=== PATIENT | male | born 1940 | race Caucasian/White ===

== ENCOUNTER 2016-08-12 06:02 | Inpatient (IN) | payer MEDICARE ==
[2016-08-12] MEDS ORDERED: DILTIAZEM HCL INJ 25 MG/5 ML VIAL IV ONE (06:14)
[2016-08-12] MEDS ORDERED: NORMAL SALINE 1000 ML 1,000 ML IV ONE ×2 (06:14→07:16)
--- NOTE | 2016-08-12 06:21 | ER Document Report ---
ED General - General Stated Complaint: SYNCOPE Mode of Arrival: Medic Information source: Patient Notes: 76-year-old male with no previous cardiac history presents with complaints of dizziness lightheadedness headache and palpitations. Patient notes she had a abdominal GI issue over the past few days has not been eating well. Denies any fevers or chills. Denies any current vomiting. TRAVEL OUTSIDE OF THE [place] IN LAST 30 DAYS: No - HPI Onset: Just prior to arrival Onset/Duration: Sudden Quality of pain: Sharp Severity: Mild Pain Level: 1 Associated symptoms: Headache, Weakness, Other Exacerbated by: Denies Relieved by: Denies Similar symptoms previously: No Recently seen / treated by doctor: Yes - Related Data Allergies/Adverse Reactions: No Known Allergies Allergy (Unverified 02/22/15 10:33) Past Medical History - Social History Smoking Status: Never Smoker Cigarette use (# per day): No Chew tobacco use (# tins/day): No Smoking Education Provided: No Family History: Reviewed & Not Pertinent Patient has suicidal ideation: No Patient has homicidal ideation: No - Past Medical History Cardiac Medical History: Reports: Hx Hypercholesterolemia Denies: Hx Heart Attack, Hx Hypertension Pulmonary Medical History: Denies: Hx Asthma Neurological Medical History: Denies: Hx Cerebrovascular Accident, Hx Seizures GI Medical History: Denies: Hx Hepatitis, Hx Hiatal Hernia, Hx Ulcer Infectious Medical History: Denies: Hx Hepatitis Past Surgical History: Reports: Hx Cholecystectomy. Denies: Hx Open Heart Surgery, Hx Pacemaker Review of Systems - Review of Systems Notes: REVIEW OF SYSTEMS: CONSTITUTIONAL : Denies fever, chills, or sweats. Denies recent illness. EENT: Denies eye, ear, throat, or mouth pain or symptoms. Denies nasal or sinus congestion or discharge. Denies throat, tongue, or mouth swelling or difficulty swallowing. CARDIOVASCULAR: Admits to palpitations RESPIRATORY: Denies cough, cold, or chest congestion. Denies shortness of breath, difficulty breathing, or wheezing. GASTROINTESTINAL: Denies abdominal pain or distention. Denies nausea, vomiting , or diarrhea. Denies blood in vomitus, stools, or per rectum. Denies black, tarry stools. Denies constipation. GENITOURINARY: Denies difficulty urinating, painful urination, burning, frequency, blood in urine, or discharge. MUSCULOSKELETAL: Denies back or neck pain or stiffness. Denies joint pain or swelling. SKIN: Denies rash, lesions or sores. HEMATOLOGIC : Denies easy bruising or bleeding. LYMPHATIC: Denies swollen, enlarged glands. NEUROLOGICAL: Admits to headache PSYCHIATRIC: Denies anxiety or stress. Denies depression, suicidal ideation, or homicidal ideation. ALL OTHER SYSTEMS REVIEWED AND NEGATIVE. Dictation was performed using [employer] voice recognition software PHYSICAL EXAMINATION: GENERAL: Well-appearing, well-nourished and in no acute distress. HEAD: Atraumatic, normocephalic. EYES: Pupils equal round and reactive to light, extraocular movements intact, conjunctiva are normal. ENT: Nares patent, oropharynx clear without exudates. Moist mucous membranes. NECK: Normal range of motion, supple without lymphadenopathy LUNGS: Breath sounds clear to auscultation bilaterally and equal. No wheezes rales or rhonchi. HEART: Irregular rate and rhythm heart rate anywhere between 110 to 160s ABDOMEN: Soft, nontender, nondistended abdomen. No guarding, no rebound. No masses appreciated. Musculoskeletal: Normal range of motion, no pitting or edema. No cyanosis. NEUROLOGICAL: Cranial nerves grossly intact. Normal speech, normal gait. Normal sensory, motor exams PSYCH: Normal mood, normal affect. SKIN: Warm, Dry, normal turgor, no rashes or lesions noted. Physical Exam - Vital signs Vitals: Pulse Ox 95 08/12/16 06:05 Course - Re-evaluation Re-evalutation: 08/12/16 06:47 Patient is currently in A. fib RVR, EKG was consistent with atrial flutter as well. Patient was given a fluid bolus since he was hypotensive initially on arrival blood pressure improved, Cardizem was started. Patient will be treated for his headache however there was suspicion that he may have already stroked secondary to the RVR - Vital Signs Vital signs: Temp Pulse Resp BP Pulse Ox 17 90/62 L 94 08/12/16 07:01 08/12/16 07:01 08/12/16 07:01 - Laboratory Result Diagrams: 08/12/16 06:11 08/12/16 06:11 Laboratory results interpreted by me: 08/12/16 08/12/16 08/12/16 06:11 06:11 06:11 MCV 98 H MCH 33.6 H Plt Count 117 L Lymphocytes % 11.1 L Glucose 114 H NT-Pro-B Natriuret Pep 489 H - EKG Interpretation by Me EKG shows normal: Sinus rhythm, [place], Intervals Rate: Tachycardia Rhythm: A.Fib, A.Flutter Critical Care Note - Critical Care Note Total time excluding time spent on procedures (mins): 31 Comments: 31 minutes of critical care time spent in direct contact evaluating and reevaluating the patient, treating symptoms, reviewing labs and studies and speaking with family and consultants excluding any procedures Discharge - Discharge Clinical Impression: Atrial fibrillation with rapid ventricular response Hypotension Qualifiers: Hypotension type: unspecified hypotension type Qualified Code(s): I95.9 - Hypotension, unspecified Condition: Stable Disposition: ADMITTED INPATIENT Admitting Provider: Hospitalist Unit Admitted: [facility]
[2016-08-12 06:24] LABS: ABSOLUTE BASOPHILS # (AUTO) 0.1 10^3/uL (0.0-0.2); ABSOLUTE EOSINOPHILS # (AUTO) 0.2 10^3/uL (0.0-0.6); ABSOLUTE LYMPHOCYTES (AUTO) 0.8 10^3/uL (0.5-4.7); ABSOLUTE MONOCYTES (AUTO) 0.8 10^3/uL (0.1-1.4); ABSOLUTE NEUT (AUTO) 5.7 10^3/uL (1.7-8.2); BASOPHILS % (AUTO) 0.8 % (0-2); EOSINOPHILS % (AUTO) 2.2 % (0-6); HEMATOCRIT 46.9 % (37.9-51.0); HGB HCT DIFFERENCE 1.1; LYMPHOCYTES % (AUTO) 11.1 % (13-45); MEAN CORPUSCULAR HEMOGLOBIN 33.6 pg (27.0-33.4); MEAN CORPUSCULAR HGB CONC 34.2 g/dL (32.0-36.0); MEAN CORPUSCULAR VOLUME 98 fl (80-97); MONOCYTES % (AUTO) 10.4 % (3-13); RED BLOOD COUNT 4.78 10^6/uL (4.35-5.55); SEGMENTED NEUTROPHILS % (AUTO) 75.5 % (42-78); WHITE BLOOD COUNT 7.6 10^3/uL (4.0-10.5)
[2016-08-12 06:43] LABS: ALANINE AMINOTRANSFERASE 44 U/L (21-72); ALBUMIN 3.8 g/dL (3.5-5.0); ALKALINE PHOSPHATASE 52 U/L (38-126); ANION GAP 13 (5-19); ASPARTATE AMINO TRANSFERASE 26 U/L (17-59); BILIRUBIN,TOTAL 0.7 mg/dL (0.2-1.3); BLOOD UREA NITROGEN 14 mg/dL (7-20); CALCIUM 8.9 mg/dL (8.4-10.2); CARBON DIOXIDE 22 mmol/L (22-30); CHLORIDE 106 mmol/L (98-107); CREATINE KINASE 153 U/L (55-170); GLUCOSE 114 mg/dL (75-110); MAGNESIUM 1.6 mg/dL (1.6-2.3); SODIUM 140.9 mmol/L (137-145); TOTAL PROTEIN 6.3 g/dL (6.3-8.2)
[2016-08-12] MEDS ORDERED: ACETAMINOPHEN 325 MG TABLET PO ONE (06:44)
[2016-08-12 06:53] LABS: CREATINE KINASE MB 1.31 ng/mL (<4.55)
[2016-08-12 06:54] LABS: TROPONIN I < 0.012 ng/mL
[2016-08-12] MEDS: DILTIAZEM HCL/D5W 125 ML IV PRN ×2 (07:49→08:42)
[2016-08-12] MEDS ORDERED: ONDANSETRON HCL INJ/PF 4 MG/2 ML SDV IV PRN (09:25)
[2016-08-12] MEDS ORDERED: ACETAMINOPHEN 325 MG TABLET PO PRN (09:25)
[2016-08-12] MEDS ORDERED: DILTIAZEM HCL/D5W 125 ML IV PRN (09:33)
--- NOTE | 2016-08-12 09:43 | PDOC H&P ---
History of Present Illness Admission Date/PCP: 08/12/16 08:05 Patient complains of: Near syncope History of Present Illness: MARTA STINSON JR is a 76 year old male, with hypercholesterolemia has been dealing with some palpitation, intermittent sharp chest pain and lightheadedness for a few months. It has no relation to activity. The patient however will not have palpitation noticeable unless he is doing more physical activity. Last night the patient started to develop lightheadedness and almost passed out. There is some sweating with some nausea but no vomiting. The patient was able to go to his bed thinking that it will go away however he persisted he called his son and he was brought to the hospital where he was found to be in rapid atrial fibrillation and flutter. 2 L of normal saline bolus was given. Cardizem drip was started. The patient was referred for admission. Patient had episodes of diarrhea early this week for about 3 days to spontaneously resolve. Patient was taking just liquid diet at that time. No paroxysmal nocturnal dyspnea, no orthopnea. Has occasional dyspnea on exertion however. Past Medical History Past Medical History: Medication reconciliation pending verification from the patient's pharmacist. Cardiac Medical History: Reports: Hyperlipidema Denies: Myocardial Infarction, Hypertension Pulmonary Medical History: Denies: Asthma Neurological Medical History: Denies: Seizures GI Medical History: Denies: Hepatitis, Hiatal Hernia Hematology: Denies: Anemia, Sickle Cell Disease Past Surgical History Past Surgical History: Reports: Cholecystectomy, Orthopedic Surgery - Rotator cuff repair on the right Denies: Pacemaker Social History Information Source: Patient Smoking Status: Never Smoker Frequency of Alcohol Use: Occasional Hx Recreational Drug Use: No Drugs: None Family History Family History: COPD, Malignancy Parental Family History Reviewed: Yes Children Family History Reviewed: Yes Sibling(s) Family History Reviewed.: Yes Medication/Allergy Allergies/Adverse Reactions: No Known Allergies Allergy (Unverified 02/22/15 10:33) Review of Systems Constitutional: PRESENT: weakness - Generalized. ABSENT: chills, fever(s), headache(s), weight gain, weight loss Eyes: ABSENT: visual disturbances Ears: ABSENT: hearing changes Nose, Mouth, and Throat: ABSENT: mouth pain, sore throat Cardiovascular: PRESENT: chest pain, dyspnea on exertion, palpitations. ABSENT : edema, orthropnea Respiratory: PRESENT: dyspnea. ABSENT: cough, hemoptysis, sputum Gastrointestinal: PRESENT: bloating, diarrhea - But now resoled. ABSENT: abdominal pain, constipation, hematemesis, hematochezia, nausea, vomiting Genitourinary: ABSENT: dysuria, hematuria Musculoskeletal: ABSENT: joint swelling Integumentary: ABSENT: pruritus, rash, wounds Neurological: PRESENT: dizziness, syncope - Near syncopal sensation. ABSENT: abnormal gait, abnormal speech, confusion, focal weakness Psychiatric: ABSENT: anxiety, depression, homidical ideation, suicidal ideation Endocrine: ABSENT: cold intolerance, heat intolerance, polydipsia, polyuria Hematologic/Lymphatic: ABSENT: easy bleeding, easy bruising Physical Exam Vital Signs: Temp Pulse Resp BP Pulse Ox 18 96/70 L 97 08/12/16 09:01 08/12/16 09:01 08/12/16 09:01 General appearance: PRESENT: no acute distress, morbidly obese Head exam: PRESENT: atraumatic, normocephalic Eye exam: PRESENT: conjunctiva pink, EOMI, PERRLA. ABSENT: scleral icterus Ear exam: PRESENT: normal external ear exam Mouth exam: PRESENT: moist, neck supple, tongue midline Neck exam: ABSENT: carotid bruit, JVD, lymphadenopathy, thyromegaly Respiratory exam: PRESENT: clear to auscultation yasmin. ABSENT: rales, rhonchi, wheezes Cardiovascular exam: PRESENT: irregular rhythm, +S1, +S2. ABSENT: diastolic murmur, gallop, rubs, systolic murmur Pulses: PRESENT: normal dorsalis pedis pul Vascular exam: PRESENT: normal capillary refill GI/Abdominal exam: PRESENT: normal bowel sounds, soft. ABSENT: distended, guarding, mass, organolmegaly, rebound, tenderness Rectal exam: PRESENT: deferred Extremities exam: PRESENT: full ROM. ABSENT: calf tenderness, clubbing, pedal edema Neurological exam: PRESENT: alert, awake, oriented to person, oriented to place , oriented to time, oriented to situation Psychiatric exam: PRESENT: appropriate affect, normal mood. ABSENT: homicidal ideation, suicidal ideation Skin exam: PRESENT: dry, intact, warm. ABSENT: cyanosis, rash Results Impressions: Chest X-Ray 08/12/16 06:05 IMPRESSION: NO ACUTE RADIOGRAPHIC FINDING IN THE CHEST. Assessment & Plan - Diagnosis (1) Atrial fibrillation with RVR Is this a current diagnosis for this admission?: Yes (2) Hypotension Qualifiers: Hypotension type: unspecified hypotension type Qualified Code(s): I95.9 - Hypotension, unspecified Is this a current diagnosis for this admission?: Yes (3) Near syncope Is this a current diagnosis for this admission?: Yes (4) Hyperlipidemia Qualifiers: Hyperlipidemia type: unspecified Qualified Code(s): E78.5 - Hyperlipidemia, unspecified Is this a current diagnosis for this admission?: Yes - Time Time Spent: 50 to 70 Minutes - Inpatient Certification Based on my medical assessment, after consideration of the patient's comorbidities, presenting symptoms, or acuity I expect that the services needed warrant INPATIENT care.: Yes I certify that my determination is in accordance with my understanding of Medicare's requirements for reasonable and necessary INPATIENT services [42 CFR 412.3e].: Yes Medical Necessity: Significant Comorbidiites Make Outpatient Treatment Too Risky , Need Close Monitoring Due to Risk of Patient Decompensation, Need For IV Fluids, Need For Continuous Telemetry Monitoring, Risk of Complication if Not Cared For in Hospital, Risk of Diagnosis Which Will Require Inpatient Eval/Care/ Monitoring Post Hospital Care: D/C Correctional Counselor Documentation - Plan Summary Plan Summary: Admit the patient to [facility]. Continue Cardizem drip and begin oral Cardizem. I will put the patient on aspirin. We will obtain cardiac enzymes 3. Echocardiogram will also be done. Supplemental oxygen and DVT prophylaxis with Lovenox will be placed. We will consult cardiology service for further evaluation. We will obtain fasting lipid panel. We will obtain a free T4. Further testing depends on the initial evaluation and per specialty recommendation as outlined above.
[2016-08-12] MEDS ORDERED: ENOXAPARIN SODIUM INJ 40 MG/0.4 ML DISP.SYRIN SUBCUT ONE (10:00)
[2016-08-12] MEDS: NORMAL SALINE 1000 ML 1,000 ML IV PRN ×3 (10:21→23:38)
[2016-08-12] MEDS: ASPIRIN 325 MG TABLET PO SCH (10:21)
[2016-08-12 10:53] LABS: CREATINE KINASE MB 1.36 ng/mL (<4.55)
[2016-08-12 10:55] LABS: TROPONIN I < 0.012 ng/mL
[2016-08-12 16:36] LABS: CREATINE KINASE MB 1.23 ng/mL (<4.55)
[2016-08-12 16:45] LABS: TROPONIN I < 0.012 ng/mL
[2016-08-12] MEDS ORDERED: ZOLPIDEM TARTRATE 5 MG TABLET PO PRN (18:00)
[2016-08-12] MEDS ORDERED: INFLUENZA ADLT QUAD (36MOS+) 2016-17 VAC 0.5 ML SYR IM PRN (18:01)
[2016-08-12] MEDS: DILTIAZEM HCL 30 MG TABLET PO SCH ×2 (18:04→23:59)
--- NOTE | 2016-08-12 18:06 | EKG REPORT ---
SEVERITY:- ABNORMAL ECG - ATRIAL FLUTTER/FIBRILLATION, A-RATE 333 BORDERLINE PROLONGED QT INTERVAL : Confirmed by: Payal Gtz MD 12-Aug-2016 18:05:41
--- NOTE | 2016-08-12 18:39 | XCELERA REPORT ---
[address] [address] Transthoracic Echocardiogram Report Name: MARTA STINSON JR Age: 76 yrs Gender: Male : 1940 Patient Status: Inpatient Patient Location: \S\18\S\A Study Date: 08/12/2016 11:29 AM Height: 71 in Weight: 270 lb BSA: 2.4 m2 Procedure: A complete two-dimensional transthoracic echocardiogram was performed (2D, M-mode, spectral and color flow Doppler). The study was technically adequate with some images being suboptimal in quality. Reason For Study: new afib, chest pain Ordering Physician: DIEGO AMOS Performed By: Manuel Lloyd Interpretation Summary The left ventricular ejection fraction is normal. Wall motion cannot be accurately commented on, but no definite regional wall motion abnormalities noted. There is mild concentric left ventricular hypertrophy. The left ventricle is grossly normal size. The right ventricle is mildly dilated. The right ventricular systolic function is normal. The left atrium is mildly dilated. The right atrium is mildly dilated. There is a trace to mild amount of mitral regurgitation There is no mitral valve stenosis. There is a trace to mild amount of aortic regurgitation There is no aortic valve stenosis There is a trace or physiologic amount of tricuspid regurgitation Tricuspid regurgitation jet envelope not well defined to measure RV systolic pressure accurately. The aortic root is not well visualized but is probably normal size. The inferior vena cava was not well visualized There is no pericardial effusion. MMode/2D Measurements \T\ Calculations RVDd: 3.4 cm LVIDd: 5.0 cm FS: 32.8 % Ao root diam: 4.1 cm IVSd: 1.3 cm LVIDs: 3.4 cm EDV(Teich): 118.4 ml LVPWd: 1.1 cm ESV(Teich): 46.2 ml Ao root area: 13.3 cm2 EF(Teich): 61.0 % LA dimension: 3.9 cm Doppler Measurements \T\ Calculations MV E max darius: MV P1/2t max darius: Ao V2 max: LV V1 max P.7 cm/sec 97.7 cm/sec 125.7 cm/sec 4.5 mmHg MV P1/2t: 42.7 msec Ao max PG: LV V1 max: 6.3 mmHg 105.8 cm/sec MVA(P1/2t): 5.2 cm2 MV dec slope: 670.1 cm/sec2 MV dec time: 0.17 sec PA V2 max: TR max darius: RAP systole: 73.5 cm/sec 214.5 cm/sec 10.0 mmHg PA max PG: TR max P.4 mmHg 2.2 mmHg RVSP(TR): 28.4 mmHg Left Ventricle The left ventricle is grossly normal size. There is mild concentric left ventricular hypertrophy. The left ventricular ejection fraction is normal. LV diastolic function could not be adequately assessed due to atrial fibrilation. Wall motion cannot be accurately commented on, but no definite regional wall motion abnormalities noted. Right Ventricle The right ventricle is mildly dilated. There is normal right ventricular wall thickness. The right ventricular systolic function is normal. Atria The right atrium is mildly dilated. The left atrium is mildly dilated. Interarterial septum not well visualized and not well dopplered. Cannot comment on ASD/PFO presence. Mitral Valve There is mild mitral leaflet calcification. There is no mitral valve stenosis. There is a trace to mild amount of mitral regurgitation. Aortic Valve The aortic valve is mildly calcified. There is no aortic valve stenosis. There is a trace to mild amount of aortic regurgitation. Tricuspid Valve The tricuspid valve is not well visualized secondary to technical limitations. There is no tricuspid stenosis. There is a trace or physiologic amount of tricuspid regurgitation. Tricuspid regurgitation jet envelope not well defined to measure RV systolic pressure accurately. Pulmonic Valve The pulmonic valve is not well visualized. Great Vessels The aortic root is not well visualized but is probably normal size. The inferior vena cava was not well visualized. Effusions There is no pericardial effusion. : DIEGO AMOS Shyamal
--- NOTE | 2016-08-12 18:40 | PDOC CONSULTATION ---
Consultation Consult Date: 08/12/16 Attending physician:: DIEGO AMOS Consult reason:: A fib History of Present Illness Admission Date/PCP: 08/12/16 09:25 Patient complains of: Shortness of breath and near syncope History of Present Illness: MARTA STINSON JR is a 76 year old male, with hypercholesterolemia has been dealing with some palpitation, intermittent sharp chest pain and lightheadedness for a few months. It has no relation to activity. The patient however will not have palpitation noticeable unless he is doing more physical activity. Last night the patient started to develop lightheadedness and almost passed out. There is some sweating with some nausea but no vomiting. The patient was able to go to his bed thinking that it will go away however his symptoms persisted, he called his son and he was brought to the hospital where he was found to be in rapid atrial fibrillation and flutter. 2 L of normal saline bolus was given. Cardizem drip was started. The patient was referred for admission. Patient had episodes of diarrhea early this week for about 3 days to spontaneously resolve. Patient was taking just liquid diet at that time. No paroxysmal nocturnal dyspnea, no orthopnea. Has occasional dyspnea on exertion however. On questioning patient denied any chest pain. He denied any prior history of myocardial infarction, angina, congestive heart failure, stroke or mini strokes or peripheral vascular disease. Patient's son in the room. History was supplemented and confirmed. Of note, while patient was in the emergency room and in atrial fibrillation, he did not feel that his heart was beating irregular. On questioning patient does describe history of snoring, difficulty falling asleep and staying asleep, fatigue and tiredness during the day. Patient describes a previous sleep study many years ago. Past Medical History Cardiac Medical History: Reports: Hyperlipidema Denies: Myocardial Infarction, Hypertension Pulmonary Medical History: Denies: Asthma Neurological Medical History: Denies: Seizures GI Medical History: Denies: Hepatitis, Hiatal Hernia Psychiatric Medical History: Denies: Depression Hematology: Denies: Anemia, Sickle Cell Disease Past Surgical History Past Surgical History: Reports: Cholecystectomy, Orthopedic Surgery - Rotator cuff repair on the right Denies: Pacemaker Social History Information Source: Patient Smoking Status: Never Smoker Frequency of Alcohol Use: Occasional Hx Recreational Drug Use: No Drugs: None Hx Prescription Drug Abuse: No - Advance Directive Resuscitation Status: Full Code Surrogate healthcare decision maker:: Patient's son is the surrogate decision maker. Family History Family History: COPD, Malignancy Parental Family History Reviewed: Yes Children Family History Reviewed: Yes Sibling(s) Family History Reviewed.: Yes - Negative for premature coronary artery disease or sudden cardiac in the family amongst first degree relatives. Medication/Allergy Home Medications: Doxycycline Hyclate [Vibramycin 100 mg Tablet] 100 mg PO BIDP PRN 08/12/16 Ivermectin [Soolantra] 1 applic TOP DAILY 08/12/16 Ketoconazole [Nizoral] 1 applic TOP DAILY 08/12/16 Olopatadine HCl [Pataday] 1 drop OU DAILY 08/12/16 Simvastatin [Zocor 10 mg Tablet] 10 mg PO DAILY 08/12/16 Allergies/Adverse Reactions: No Known Allergies Allergy (Unverified 02/22/15 10:33) Review of Systems Review of Systems: Please see history of present illness and past medical history as wall. Constitutional: No fever or chills reported. Head : No recent chronic headaches, recent head injury. Eyes: No recent eye pain, diplopia, redness, discharge, acute visual changes. Ears: No recent chronic ear pain, acute hearing loss, ear discharge. Oral cavity: No recent ulcerations, bleeding, oral cavity discomfort. Neck: No recent acute neck pain reported. Hematologic: No recent easy bruising or bleeding or hematologic malignancy reported. Lymphatic: No recent lymphatic malignancy, chronic lymphadenopathy reported yet Cardiovascular system review: See history of present illness. Near syncope and palpitations being noted. Respiratory system review: No recent chronic cough, hemoptysis, blood clots in the lungs reported. Mild Shortness of breath on exertion Gastrointestinal system review: Negative for any recent acute or chronic abdominal pain, hematemesis, melena, patient has however noted some nausea vomiting and diarrhea recently and has had very poor appetite. Genitourinary system review: No recent acute or chronic hematuria, flank pain, UTI etc. reported. Skin system review: Negative for any recent abnormal bruising, no rash, no pruritus reported. Neurologic: No prior history of strokes, mini strokes, seizure disorder. Psychologic: No history of major psychosis or depression reported. Musculoskeletal: Minor aches and pains reported. No acute joint swelling reported. Endocrine: No recent polyuria, polydipsia, recent heat or cold intolerance. Physical Exam Vital Signs: Temp Pulse Resp BP Pulse Ox 98.2 F 64 19 100/60 100 08/12/16 17:01 08/12/16 18:04 08/12/16 17:01 08/12/16 18:04 08/12/16 17:01 Intake & Output 08/11/16 08/12/16 08/13/16 06:59 06:59 06:59 Intake Total 1542 Balance 1542 Weight 119.9 kg Exam: GENERAL: well-nourished and in no acute distress. Alert and oriented x3 HEAD: Atraumatic, normocephalic. EYES: Pupils equal round and reactive to light, extraocular movements intact, sclera anicteric, conjunctiva are normal. ENT: TMs normal, nares patent, oropharynx clear without exudates. Moist mucous membranes. No oral ulcerations or bleeding gums noted NECK: supple without lymphadenopathy. Trachea is central. No cervical or axillary lymphadenopathy noted. Carotids are 2+, JVD WNL LUNGS: Respiration seems nonlabored, no significant accessory muscle action noted. Breath sounds clear to auscultation bilaterally and equal noted. No wheezes rales or rhonchi noted. No significant dullness noted on percussion. CHEST: Palpation of the chest wall shows no significant chest wall tenderness. No other significant abnormalities noted. 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 ABDOMEN: Soft, no significant tenderness appreciated, normoactive bowel sounds. No guarding, no rebound. No rigidity noted . No masses appreciated. EXTREMITIES: Pedal pulses are 1-2+, no calf tenderness noted. No clubbing or cyanosis.trace to 1+ pedal edema noted NEUROLOGICAL: Focused neurological exam showed no significant neurologic deficit. Normal speech, no focal weakness appreciated. PSYCH: Normal mood, normal affect. Judgment and insight within normal limits. SKIN: No significant ecchymosis, rash, ulcerations or signs of pruritus noted. Bilateral lower extremity varicose veins noted. MUSCULOSKELETAL EXAM: No significant joint swelling noted. Results Laboratory Results: 08/12/16 10:07 Free T4 1.21 08/12/16 08/12/16 08/12/16 10:07 10:07 15:55 Creatine Kinase 145 144 CK-MB (CK-2) 1.36 Troponin I < 0.012 08/12/16 15:55 Creatine Kinase CK-MB (CK-2) 1.23 Troponin I < 0.012 Impressions: Chest X-Ray 08/12/16 06:05 IMPRESSION: NO ACUTE RADIOGRAPHIC FINDING IN THE CHEST. Assessment & Plan - Diagnosis (1) Atrial fibrillation with RVR Is this a current diagnosis for this admission?: Yes (2) Hyperlipidemia Qualifiers: Hyperlipidemia type: unspecified Qualified Code(s): E78.5 - Hyperlipidemia, unspecified Is this a current diagnosis for this admission?: Yes (3) Hypotension Qualifiers: Hypotension type: unspecified hypotension type Qualified Code(s): I95.9 - Hypotension, unspecified Is this a current diagnosis for this admission?: Yes (4) Near syncope Is this a current diagnosis for this admission?: Yes (5) Sleep disorder breathing Is this a current diagnosis for this admission?: Yes (6) Obesity Is this a current diagnosis for this admission?: Yes - Notes Notes: Atrial fibrillation with rapid ventricular response: Recommend rate control and chronic anticoagulation. Rationale for this therapy was discussed. Patient may be having paroxysmal atrial fibrillation or may have chronic atrial fibrillation. After 3-4 weeks of adequate anticoagulation, cardioversion, either chemical or electrical can be performed. A 2-D echo was ordered and will be reviewed. Hypotension: Patient was noted to be transiently hypotensive, patient was relative hypovolemic with some contribution from atrial fibrillation. Agree with IV fluid supplementation. Hyperlipidemia: Continue statin therapy. Near syncope: Combination of hypotension and atrial fibrillation. Patient may have underlying sick sinus syndrome. Agree with cardiac monitoring. Patient may benefit from event monitoring as an outpatient. Sleep disordered breathing: Discussed that both obesity and sleep apnea is associated with atrial fibrillation. Discussed that he would benefit from scheduling a sleep study and this could be done from my office. Obesity: Patient advised in weight loss. - Time Time Spent: 30 to 50 Minutes - CODE STATUS was discussed, patient remains full code. Surrogate decision-maker unchanged. Multiple medical problems were addressed.More than 50% of the time spent coordinating care, discussing management plans with involved caregivers. Management plans discussed with involved personnels. Medical decision making was of moderate complexity.
[2016-08-12 19:39] LABS: APPEARANCE,URINE CLEAR; BILIRUBIN,URINE NEGATIVE (NEGATIVE); GLUCOSE, URINE NEGATIVE (NEGATIVE); KETONES,URINE 20 mg/dL (NEGATIVE); LEUKOCYTE ESTERASE,URINE NEGATIVE (NEGATIVE); NITRITE,URINE NEGATIVE (NEGATIVE); PROTEIN,URINE NEGATIVE (NEGATIVE); URINE SPECIFIC GRAVITY 1.015; UROBILINOGEN,URINE NEGATIVE mg/dL (<2.0)
[2016-08-12 21:41] LABS: CREATINE KINASE MB 1.05 ng/mL (<4.55)
[2016-08-12 21:45] LABS: TROPONIN I < 0.012 ng/mL
[2016-08-13 05:55] LABS: ANION GAP 11 (5-19); BLOOD UREA NITROGEN 10 mg/dL (7-20); CALCIUM 8.5 mg/dL (8.4-10.2); CARBON DIOXIDE 22 mmol/L (22-30); CHLORIDE 108 mmol/L (98-107); CREATININE RESULT 0.74 mg/dL (0.52-1.25); GLUCOSE 100 mg/dL (75-110); MAGNESIUM 1.6 mg/dL (1.6-2.3); SODIUM 141.3 mmol/L (137-145)
[2016-08-13] MEDS: DILTIAZEM HCL 30 MG TABLET PO SCH ×2 (05:59→12:22)
[2016-08-13] MEDS ORDERED: LANSOPRAZOLE 30 MG TAB.RAP.DR PO SCH (06:00)
[2016-08-13] MEDS ORDERED: ENOXAPARIN SODIUM INJ 40 MG/0.4 ML DISP.SYRIN SUBCUT SCH (08:00)
[2016-08-13] MEDS: NORMAL SALINE 1000 ML 1,000 ML IV PRN (08:24)
[2016-08-13] MEDS: ASPIRIN 325 MG TABLET PO SCH (10:34)
[2016-08-13 12:32] VITALS: BP 91/63
--- NOTE | 2016-08-13 12:37 | PDOC PROGRESS REPORT ---
Subjective Progress Note for:: 08/13/16 Subjective:: Patient seems to be doing better with gradual improvement. Pt is denying any chest arm or neck discomfort. Patient denying any PND, orthopnea. Patient denied any sustained palpitations, dizziness, syncope, near syncope. Patient denying any fever chills. Patient denying any other significant discomfort. Patient is maintaining sinus rhythm. Patient converted to sinus rhythm. Patient no longer complaining of dizziness. Review of systems: Rest review of systems negative. Medications: Medications have been reviewed. Physical Exam Vital Signs: Temp Pulse Resp BP Pulse Ox 97.7 F 62 18 128/67 H 100 08/13/16 11:27 08/13/16 11:27 08/13/16 11:27 08/13/16 11:27 08/13/16 11:27 Intake & Output 08/12/16 08/13/16 08/14/16 06:59 06:59 06:59 Intake Total 3342 Balance 3342 Weight 121.4 kg Exam: GENERAL: well-nourished and in no acute distress. Alert and oriented x3 HEAD: Atraumatic, normocephalic. EYES: Pupils equal round and reactive to light, extraocular movements intact, sclera anicteric, conjunctiva are normal. ENT: TMs normal, nares patent, oropharynx clear without exudates. Moist mucous membranes. No oral ulcerations or bleeding gums noted NECK: supple without lymphadenopathy. Trachea is central. No cervical or axillary lymphadenopathy noted. Carotids are 2+, JVD WNL LUNGS: Respiration seems nonlabored, no significant accessory muscle action noted. Breath sounds clear to auscultation bilaterally and equal noted. No wheezes rales or rhonchi noted. No significant dullness noted on percussion. CHEST: Palpation of the chest wall shows no significant chest wall tenderness. No other significant abnormalities noted. 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 ABDOMEN: Soft, no significant tenderness appreciated, normoactive bowel sounds. No guarding, no rebound. No rigidity noted . No masses appreciated. EXTREMITIES: Pedal pulses are 1-2+, no calf tenderness noted. No clubbing or cyanosis.1+ pedal edema noted. Mild varicose veins noted. NEUROLOGICAL: Focused neurological exam showed no significant neurologic deficit. Normal speech, no focal weakness appreciated. PSYCH: Normal mood, normal affect. Judgment and insight within normal limits. SKIN: No significant ecchymosis, rash, ulcerations or signs of pruritus noted. MUSCULOSKELETAL EXAM: No significant joint swelling noted. Results Laboratory Results: 08/13/16 05:28 08/12/16 08/13/16 19:16 05:28 Sodium 141.3 Potassium 4.0 Chloride 108 H Carbon Dioxide 22 Anion Gap 11 BUN 10 Creatinine 0.74 Est GFR ( Amer) > 60 Est GFR (Non-Af Amer) > 60 Glucose 100 Calcium 8.5 Phosphorus 3.0 Magnesium 1.6 Urine Color YELLOW Urine Appearance CLEAR Urine pH 5.0 Ur Specific [place] 1.015 Urine Protein NEGATIVE Urine Glucose (UA) NEGATIVE Urine Ketones 20 H Urine Blood NEGATIVE Urine Nitrite NEGATIVE Ur Leukocyte Esterase NEGATIVE Urine WBC (Auto) 0 Urine RBC (Auto) 0 08/12/16 08/12/16 08/12/16 10:07 10:07 15:55 Creatine Kinase 145 144 CK-MB (CK-2) 1.36 Troponin I < 0.012 08/12/16 08/12/16 08/12/16 15:55 21:05 21:05 Creatine Kinase 135 CK-MB (CK-2) 1.23 1.05 Troponin I < 0.012 < 0.012 Impressions: Chest X-Ray 08/12/16 06:05 IMPRESSION: NO ACUTE RADIOGRAPHIC FINDING IN THE CHEST. Lung Scan-VQ NM 08/12/16 23:06 IMPRESSION: NORMAL VENTILATION-PERFUSION LUNG SCAN. NEGATIVE FOR PULMONARY EMBOLI. Assessment & Plan - Diagnosis (1) Atrial fibrillation with RVR Is this a current diagnosis for this admission?: Yes (2) Hyperlipidemia Qualifiers: Hyperlipidemia type: unspecified Qualified Code(s): E78.5 - Hyperlipidemia, unspecified Is this a current diagnosis for this admission?: Yes (3) Hypotension Qualifiers: Hypotension type: unspecified hypotension type Qualified Code(s): I95.9 - Hypotension, unspecified Is this a current diagnosis for this admission?: Yes (4) Near syncope Is this a current diagnosis for this admission?: Yes (5) Sleep disorder breathing Is this a current diagnosis for this admission?: Yes (6) Obesity Is this a current diagnosis for this admission?: Yes - Notes Notes: Atrial fibrillation paroxysmal: Patient now converted to sinus rhythm. Discussed anticoagulation. Rationale for this therapy was discussed. 2-D echo results reviewed. It showed right ventricular enlargement. Normal LVEF. Patient questions answered. Hypotension: This has resolved. Patient may have underlying hypertension. Hyperlipidemia: Continue statin therapy. Near syncope: Combination of hypotension and atrial fibrillation. Patient may have underlying sick sinus syndrome. Patient may benefit from event monitoring as an outpatient. Patient agreeable to get this performed through my office. Sleep disordered breathing: Discussed that both obesity and sleep apnea is associated with atrial fibrillation. Discussed that he would benefit from scheduling a sleep study and this could be done from my office. Obesity: Patient advised in weight loss. - Time Time with patient: Greater than 35 minutes - CODE STATUS was discussed, patient remains full code. Surrogate decision-maker unchanged. Multiple medical problems were addressed.More than 50% of the time spent coordinating care, discussing management plans with involved caregivers. Management plans discussed with involved personnels. Medical decision making was of moderate complexity.
--- NOTE | 2016-08-13 13:17 | PDOC DISCHARGE SUMMARY ---
General - Admit/Disc Date/PCP Admission Date/Primary Care Provider: 08/12/16 09:25 Discharge Date: 08/13/16 - Discharge Diagnosis (1) Atrial fibrillation with RVR Is this a current diagnosis for this admission?: Yes (2) Hypotension Is this a current diagnosis for this admission?: Yes (3) Near syncope Is this a current diagnosis for this admission?: Yes (4) Hyperlipidemia Is this a current diagnosis for this admission?: Yes - Additional Information Resuscitation Status: Full Code Discharge Diet: Cardiac - low-fat low-salt Discharge Activity: Activity As Tolerated, Balance Activity w/Rest Home Medications: Ivermectin [Soolantra] 1 applic TOP DAILY 08/12/16 Ketoconazole [Nizoral] 1 applic TOP DAILY 08/12/16 Olopatadine HCl [Pataday] 1 drop OU DAILY 08/12/16 Simvastatin [Zocor 10 mg Tablet] 10 mg PO DAILY 08/12/16 Apixaban [Eliquis 5 mg Tablet] 5 mg PO BID #60 tablet 08/13/16 Diltiazem HCl [Cardizem Cd 120 mg Capsule] 1 cap.sr PO DAILY #30 cap.sr Additional Information: 1. Watch for any signs of bleeding, including melena, hematochezia, hematemesis , hematuria, hemoptysis. 2. Event recorder/sleep study as outpatient with Dr. Ventura. History of Present Illness Patient complains of: Palpitation and chest pain History of Present Illness: MARTA STINSON JR is a 76 year old male, with hypercholesterolemia has been dealing with some palpitation, intermittent sharp chest pain and lightheadedness for a few months. It has no relation to activity. The patient however will not have palpitation noticeable unless he is doing more physical activity. Last night the patient started to develop lightheadedness and almost passed out. There is some sweating with some nausea but no vomiting. The patient was able to go to his bed thinking that it will go away however he persisted he called his son and he was brought to the hospital where he was found to be in rapid atrial fibrillation and flutter. 2 L of normal saline bolus was given. Cardizem drip was started. The patient was referred for admission. Patient had episodes of diarrhea early this week for about 3 days to spontaneously resolve. Patient was taking just liquid diet at that time. No paroxysmal nocturnal dyspnea, no orthopnea. Has occasional dyspnea on exertion however. Hospital Course Hospital Course: The patient was admitted to [facility]. The patient was maintained on Cardizem drip and oral Cardizem was begun. Aspirin was likewise started. Patient's hypotension was treated with intravenous fluids. Eventually the patient's blood pressure normalized. Cardiology was consulted for the new onset atrial fibrillation. Recommendation of putting the patient on chronic anticoagulation. Patient converted back to sinus later on today. Patient's Cardizem drip was discontinued. IV fluids was maintained and the patient's blood pressure has stabilized. The patient's symptomatology improved. Cardiac enzymes were negative for myocardial infarction. D-dimer mildly elevated and so a VQ scan was done showing low probability for pulmonary embolism. 2-D echocardiogram revealed normal ejection fraction, and no significant valvular defect. The rest of the hospital stay is unremarkable. The patient was cleared by cardiology to this discharge and have an event recorder or a sleep study in his office. Patient agreed for chronic anticoagulation. Risks and benefits has been explained. Symptoms of bleeding likewise described to the patient. Physical Exam Vital Signs: Temp Pulse Resp BP Pulse Ox 97.7 F 62 18 91/63 L 100 08/13/16 12:32 08/13/16 12:32 08/13/16 12:32 08/13/16 12:32 08/13/16 12:32 Intake & Output 08/12/16 08/13/16 08/14/16 06:59 06:59 06:59 Intake Total 3342 Balance 3342 Weight 121.4 kg General appearance: PRESENT: no acute distress, cooperative Head exam: PRESENT: normocephalic Eye exam: PRESENT: EOMI Mouth exam: PRESENT: moist, neck supple Neck exam: ABSENT: JVD Respiratory exam: PRESENT: clear to auscultation yasmin. ABSENT: rhonchi, wheezes Cardiovascular exam: PRESENT: RRR. ABSENT: gallop GI/Abdominal exam: PRESENT: normal bowel sounds, soft. ABSENT: distended, tenderness Extremities exam: ABSENT: pedal edema Neurological exam: PRESENT: alert, awake, oriented to person, oriented to place , oriented to time, oriented to situation Skin exam: PRESENT: dry, warm. ABSENT: cyanosis Results Laboratory Results: 08/13/16 05:28 08/12/16 08/13/16 19:16 05:28 Sodium 141.3 Potassium 4.0 Chloride 108 H Carbon Dioxide 22 Anion Gap 11 BUN 10 Creatinine 0.74 Est GFR ( Amer) > 60 Est GFR (Non-Af Amer) > 60 Glucose 100 Calcium 8.5 Phosphorus 3.0 Magnesium 1.6 Urine Color YELLOW Urine Appearance CLEAR Urine pH 5.0 Ur Specific [place] 1.015 Urine Protein NEGATIVE Urine Glucose (UA) NEGATIVE Urine Ketones 20 H Urine Blood NEGATIVE Urine Nitrite NEGATIVE Ur Leukocyte Esterase NEGATIVE Urine WBC (Auto) 0 Urine RBC (Auto) 0 08/12/16 08/12/16 08/12/16 10:07 10:07 15:55 Creatine Kinase 145 144 CK-MB (CK-2) 1.36 Troponin I < 0.012 08/12/16 08/12/16 08/12/16 15:55 21:05 21:05 Creatine Kinase 135 CK-MB (CK-2) 1.23 1.05 Troponin I < 0.012 < 0.012 Impressions: Chest X-Ray 08/12/16 06:05 IMPRESSION: NO ACUTE RADIOGRAPHIC FINDING IN THE CHEST. Lung Scan-VQ NM 08/12/16 23:06 IMPRESSION: NORMAL VENTILATION-PERFUSION LUNG SCAN. NEGATIVE FOR PULMONARY EMBOLI. Qualifiers PATEINT BEING DISCHARGED WITH ANY OF THE FOLLOWING DIAGNOSIS?: No Plan Discharge Plan: Follow-up with primary care physician in one week. Follow-up with Dr. Ventura on 08/15/2015. Time Spent: Less than 30 Minutes
--- NOTE | 2016-08-14 15:07 | Progress Note ---
Provider Note Provider Note: I have submitted prior authorization for Eliquis 5 milligrams by mouth twice a day 60 count with 0 refills on 2 separate occasions. This is for medication started in the hospital. I have attempted to contact [facility] on 08/14/2016 however voice recording stated that it was Monday and they were closed. I submitted other request via the on line portal which consumed 30 minutes of my time. However a confirmation was not sent to my email in spite of repeated requests.
--- NOTE | 2016-08-15 14:27 | Progress Note ---
Provider Note Provider Note: Prior authorization has been approved for this patient. 5 milligrams of Eliquis twice a day. Prior authorization was obtained using my [employer] number however the prescription was written by Dr. Daugherty who has followed and managed and discharge this patient. I notified [facility] on [address] of the prior authorization.
== END 2016-08-13 13:03 | disposition home or self-care (01) | DRG 310 ==
LOC: ER 06:02 → UNDOADMIN 08:05 → EH 08:05 → 3W 16:35
PROC: 3E0234Z Introduction of Serum, Toxoid and Vaccine into Muscle, Percutaneous Approach (ICD-10-PCS; principal; 2016-08-13)
DX: I48.91 Unspecified atrial fibrillation (principal); I95.9 Hypotension, unspecified; R55 Syncope and collapse; E78.5 Hyperlipidemia, unspecified; E78.00 Pure hypercholesterolemia, unspecified; E66.9 Obesity, unspecified; G47.9 Sleep disorder, unspecified; I48.92 Unspecified atrial flutter; Z68.37 Body mass index [BMI] 37.0-37.9, adult; Z23 Encounter for immunization; Z79.899 Other long term (current) drug therapy; Z90.49 Acquired absence of other specified parts of digestive tract; Z83.6 Family history of other diseases of the respiratory system; Z80.9 Family history of malignant neoplasm, unspecified
CPT/HCPCS: 36415; 71010; 78582; 80048; 80053; 81001; 82550; 82553; 83735; 83880; 84100; 84439; 84443; 84484; 85025; 85379; 90686; 93005; 93010; 93306; 96374; 99291; A9540; A9567; J1650; J3490; J7030; Q9969

== ENCOUNTER → 2017-11-27 | Outpatient (CLI) | payer MEDICARE ==
--- NOTE | 2017-11-27 16:09 | XCELERA REPORT ---
[address] [address] Lower Extremity Venous Evaluation Name: MILADMARTA JR Age: 77 yrs Gender: Male : 1940 Patient Status: Outpatient Patient Location: Study Date: 11/27/2017 03:26 PM Procedure: Color flow and duplex imaging of the veins of the right lower extremity as well as the left Common Femoral vein. Reason For Study: VENOUS INSUFFICIENCY RLE Ordering Physician: VISH JACKMAN Performed By: Amirah Sullivan Right Sided Venous Evaluation Study difficult due to body habitus and patient discomfort. Distal Femoral and Popliteal not well seen. Normal vessel filling wall to wall, compression and augmentation as well as Colour flow down to the infrageniculate veins. In the evaluable veins. Left Sided Venous Evaluation The left common femoral vein is fully compressible. Spontaneous and phasic flow is present in the left common femoral vein. Interpretation Summary No duplex evidence of DVT or obstruction in the right lower extremity nor in the left Common Femoral vein. : VISH JACKMAN > Kendall Mckeon
== END ==
LOC: SP 14:59
PROVIDERS: ATTEND Physician Assistant
DX: I87.2 Venous insufficiency (chronic) (peripheral) (principal)
CPT/HCPCS: 93971

== ENCOUNTER → 2018-10-23 | Outpatient (CLI) | payer MEDICARE ==
--- NOTE | 2018-10-23 10:18 | RADIOLOGY REPORT (SQ) ---
EXAM DESCRIPTION: MRI LUMBAR SPINE WITHOUT COMPLETED DATE/TIME: 10/23/2018 9:23 am REASON FOR STUDY: LOW BACK PAIN M54.5 LOW BACK PAIN COMPARISON: CT abdomen pelvis 02/22/2015 TECHNIQUE: Sagittal and Axial imaging includes T1, T2, STIR and gradient echo sequences. Coronal T2/ HASTE imaging. LIMITATIONS: None. FINDINGS: VISUALIZED UPPER ABDOMEN: Limited evaluation. No acute or suspicious findings suggested. SEGMENTATION: No transitional anatomy. The lowest well-developed disc space is labeled L5-S1. ALIGNMENT: Anatomic. VERTEBRAE: Intact. BONE MARROW: Benign vertebral body hemangiomas are present DISC SIGNAL: Diffuse decreased T2 weighted intervertebral disc signal. POSTERIOR ELEMENTS: Generally intact. No pars defect evident. HARDWARE: None in the spine. CORD AND CONUS: Normal in size and signal intensity. Conus at the L1-2 level. SOFT TISSUES: No aortic aneurysm seen. No bulky retroperitoneal adenopathy or mass. No paraspinal mas s or fluid. T11-12: At the very upper edge of the field of view. Bilateral facet hypertrophy is present with mi ld bilateral foraminal narrowing. No central stenosis. T12-L1: Mild bilateral facet hypertrophy causes mild bilateral foraminal narrowing. No posterior di sc bulging or central stenosis. L1-L2: Moderate bilateral facet hypertrophy. Minimal posterior disc bulging. Mild bilateral foramin al narrowing. No central stenosis. L2-L3: Severe central canal stenosis is present, with effacement of the CSF around the lumbar nerve r oots. This results from broad diffuse posterior disc bulging and very bulky bilateral facet and liga ment hypertrophy, and is best shown on axial T2 image 13 and sagittal T2 image 11. Elsewhere at L2-3, moderate bilateral foraminal narrowing is present without exiting L2 nerve root im pingement. L3-L4: Severe central canal stenosis results from broad diffuse posterior disc bulging and bulky bila teral facet and ligament hypertrophy. There is effacement of the CSF around the lumbar nerve roots b est shown on axial T2 image 20 and sagittal T2 image 11. Elsewhere at L3-4, there is moderate bilateral foraminal narrowing without definite exiting L3 nerve root impingement. L4-L5: Moderate central canal stenosis results from broad diffuse posterior disc bulge, small central disc protrusion, and bulky bilateral facet and ligament hypertrophy. Partial effacement of the CSF around the lumbar nerve roots, best shown on axial T2 image 26 and sagittal T2 image 10. Elsewhere at L4-5, there is high-grade right and moderate left foraminal narrowing. L5-S1: There is bulky bilateral facet arthropathy and mild posterior disc bulging. No central canal narrowing. There is moderate to high-grade right and high-grade left foraminal narrowing with efface ment of the fat around the exiting L5 nerve roots. SACRUM: Visualized upper sacrum intact. OTHER: No other significant findings. IMPRESSION: Significant central canal stenosis at L2-3 and L3-4. Significant foraminal narrowing at L4-5 and L5-S1 TECHNICAL DOCUMENTATION: JOB ID: [id number] [employer]- All Rights Reserved Reading location - IP/workstation name: [email or web address]
== END ==
LOC: RAD 08:13
PROVIDERS: ATTEND Physician Assistant
DX: M54.5 Low back pain (principal)
CPT/HCPCS: 72148

== ENCOUNTER → 2018-11-08 | Outpatient (CLI) | payer MEDICARE ==
--- NOTE | 2018-11-08 16:00 | RADIOLOGY REPORT (SQ) ---
EXAM DESCRIPTION: L SPINE W/FLEX/EXT COMPLETED DATE/TIME: 11/08/2018 2:00 pm REASON FOR STUDY: LUMBAR RADICULAPATHY COMPARISON: None. NUMBER OF VIEWS: Seven views. TECHNIQUE: AP, lateral, obliques, flexion, extension, and sacral radiographic images acquired. LIMITATIONS: None. FINDINGS: There is ventral wedging of several lower thoracic vertebral bodies which appears chronic. There is disc space narrowing and osteophyte formation at multiple levels. Alignment is anatomic. No instability with flexion and extension. IMPRESSION: Spondylosis. No instability. TECHNICAL DOCUMENTATION: JOB ID: [id number]- All Rights Reserved Reading location - IP/workstation name: [email or web address]
== END ==
LOC: RAD 13:24
PROVIDERS: ATTEND Specialist
DX: M54.16 Radiculopathy, lumbar region (principal); M47.896 Other spondylosis, lumbar region
CPT/HCPCS: 72114